=== PATIENT | female | born 1990 | race African-American/Black ===

== ENCOUNTER 2019-11-27 11:34 | Outpatient (CLI) | payer OTHER ==
--- NOTE | 2019-11-27 13:36 | ULT ---
THYROID ULTRASOUND: Date: 11/27/2019 INDICATION: Thyroid enlargement. Neck fullness. FINDINGS: Both lobes of thyroid are homogeneous and appear unremarkable. Right lobe measures 1.5 x 4.3 x 1.4 cm. Left lobe measures 1.4 x 4.2 x 1.2 cm. The isthmus measures 0.3 cm. No mass or nodule. IMPRESSION: Unremarkable thyroid ultrasound. POS: OFF
== END 2019-11-27 11:35 | disposition home or self-care (01) ==
LOC: SCSULT 11:34
PROVIDERS: ATTEND Student in an Organized Health Care Education/Training Program
DX: E07.89 Other specified disorders of thyroid (principal)
CPT/HCPCS: 76536